=== PATIENT | female | born 1970 | race Caucasian/White ===

== ENCOUNTER 2021-05-20 09:18 | Emergency (ER) | payer OTHER ==
[~2021-05-20] VITALS: Ht 154.9 cm; Wt 76.7 kg
[~2021-05-20 09:18] MED LIST: CLONAZEPAM; COMBIVENT INH; FLEXERIL PO; MOBIC15 MG PO; PREDNISONE 20 M20 M1 PO; ZOLOFT25 MG; ZPAK PO
[2021-05-20] MEDS ORDERED: ADDERALL XR 3030 MG PO (09:35)
[2021-05-20 10:38] LABS: ABSOLUTE NEUTROPHILS 6.8 thou/uL (1.4-8.2); BASOPHILS 0.5 % (0.0-2.0); EOSINOPHILS 1.6 % (0.0-3.0); HEMATOCRIT 38.7 % (37.0-47.0); HEMOGLOBIN 13.2 gm/dL (12.0-15.0); LYMPHOCYTES 21.5 % (24.0-44.0); MCH 32.9 pg (26.0-34.0); MCHC 34.1 g/dL (28.0-37.0); MCV 96.6 fL (80.0-100.0); MONOCYTES 7.1 % (1.0-8.0); PLATELET COUNT 325 thou/uL (150-400); POLYS 69.3 % (36.0-66.0); RBC 4.01 mil/uL (4.20-5.00); RDW 12.8 % (10.5-14.5); WBC 9.9 thou/uL (4.0-11.0)
[2021-05-20 10:51] LABS: CREATININE 0.8 mg/dL (0.6-1.0); POTASSIUM 3.8 mmol/L (3.5-5.1)
[2021-05-20 10:57] LABS: ALBUMIN 3.7 g/dL (3.4-5.0); TOTAL BILIRUBIN 0.2 mg/dL (0.2-1.0); TOTAL PROTEIN 7.1 g/dL (6.4-8.2)
--- NOTE | 2021-05-20 11:42 | EKG ---
[address] [address] ELECTROCARDIOGRAM REPORT Name: ELVIAJESSICA NE Room #: REG [facility]#: [id number] Admission: 05/20/21 Attend Phys: Discharge: Date of : 70 Report #: [id number] [facility] ED Test Date: 2021-05-20 Test Time: 09:22:19 Pat Name: JESSICA GAN Department: Room: Gender: F Customer Relations Representative: : 1970 Requested By: Demetrius Strickland Order Number: [id number] MD: Trevor Ayers Measurements Intervals [place] Rate: 81 P: 95 NM: 103 QRS: 75 QRSD: 92 T: 55 QT: 396 QTc: 460 Interpretive Statements Sinus rhythm Short NM interval No previous ECG available for comparison Electronically Signed On 05-20-2021 11:42:26 CDT by Trevor Ayers [email or web address] <ELECTRONICALLY SIGNED> By: Trevor Ayers MD 05/20/21 1142 0922 0922 Trevor Ayers MD /EPI
[2021-05-20 11:56] LABS: URINE BILIRUBIN NEGATIVE (Negative); URINE BLOOD 3+ (Negative); URINE CLARITY CLEAR; URINE COLOR YELLOW; URINE GLUCOSE-RANDOM* NEGATIVE (Negative); URINE KETONES NEGATIVE (Negative); URINE LEUKOCYTES-REFLEX TRACE (Negative); URINE NITRITE-REFLEX NEGATIVE (Negative); URINE PROTEIN (DIPSTICK) NEGATIVE (Negative); URINE UROBILINOGEN 0.2 E.U./dl (0.2-1.0)
[2021-05-20 12:27] LABS: SQUAMOUS 0-3 Few /LPF (0-3)
[2021-05-20 12:28] LABS: CASTS None Seen /LPF (None Seen); CRYSTALS None Seen /LPF (None Seen)
[2021-05-20 12:31] LABS: BACTERIA-REFLEX 1-9 Few /HPF (None Seen); URINE RBC 1-2 Rare /HPF (NONE SEEN); URINE WBC-REFLEX 0-5 Rare /HPF (0-5)
[2021-05-20 12:39] VITALS: BP 106/71
== END 2021-05-20 12:39 | disposition home or self-care (01) ==
LOC: ER 09:18
PROVIDERS: Emergency Medicine
DX: R53.81 Other malaise (principal); Z20.822 Contact with and (suspected) exposure to COVID-19; F41.9 Anxiety disorder, unspecified; Z79.899 Other long term (current) drug therapy; Z79.51 Long term (current) use of inhaled steroids; Z79.1 Long term (current) use of non-steroidal anti-inflammatories (NSAID)